=== PATIENT | female | born 1955 | race African-American/Black ===

== ENCOUNTER 2020-05-08 07:12 | Observation (INO) | payer MEDICARE ==
[2020-05-04 13:18] LABS: BASOPHILS # (AUTO) 0.1 (0.0-0.1); BASOPHILS % 0.6 % (0.0-1.0); EOSINOPHILS # (AUTO) 0.3 (0.0-0.4); EOSINOPHILS % 2.9 % (0.0-6.0); HEMATOCRIT 39.4 % (34.2-44.1); LYMPHOCYTES # (AUTO) 3.2 (1.0-3.2); LYMPHOCYTES % 32.1 % (18.0-39.1); MEAN CORPUSCULAR HEMOGLOBIN 22.1 pg (28-32); MEAN CORPUSCULAR HGB CONC 30.5 g/dL (31-35); MEAN CORPUSCULAR VOLUME 72.4 fL (81-99); MONOCYTES # (AUTO) 0.8 (0.2-0.8); MONOCYTES % 7.5 % (4.4-11.3); NEUTROPHILS # (AUTO) 5.7 (2.1-6.9); NEUTROPHILS % 56.5 % (38.7-80.0); PLATELET COUNT 214 x10e3/uL (140-360); RED BLOOD COUNT 5.44 x10e6/uL (3.6-5.1); RED CELL DISTRIBUTION WIDTH 16.9 % (11.7-14.4)
--- NOTE | 2020-05-04 14:02 | Diagnostic Imaging Report ---
Exam: CHEST 2 VIEWS Date: 05/04/2020 1:58 PM INDICATION: ^PRE OP Comparison: None FINDINGS: Lines/Tubes:None Lungs:The lungs are well inflated. No focal consolidation or pulmonary edema. Pleura:No pleural effusion. No pneumothorax. Heart/Mediastinum:The cardiomediastinal silhouette is normal in size and contour. Bones/Soft Tissues: No acute osseous abnormality. Mild multilevel degenerative changes of the spine are noted. Upper abdomen: Unremarkable. IMPRESSION: Negative for acute intrathoracic process. Signed by: Kyrie Andrade MD on 05/04/2020 1:58 PM
[~2020-05-08] VITALS: Ht 167.6 cm; Wt 116.1 kg
[~2020-05-08 07:12] MED LIST: AMLODIPINE BESYL5 MG PO
[2020-05-08] MEDS ORDERED: ROPIVACAINE 246.25 MG, EPINEPHRINE HCL 1:1000 1ML 0.5 MG, CLONIDINE HCL 0.08 MG, KETORO... INJ ONE ×5 (08:00)
[2020-05-08] MEDS ORDERED: CEFAZOLIN SOD 1 GM/NS 50ML 100 ML IV ONE (08:28)
[2020-05-08] MEDS ORDERED: GABAPENTIN 300 MG CAP ONE (08:28)
[2020-05-08] MEDS ORDERED: CELECOXIB 200 MG CAP ONE (08:28)
[2020-05-08] MEDS ORDERED: DEXAMETHASONE SOD PHOS 10 MG/1 ML VIAL ONE (08:28)
[2020-05-08] MEDS ORDERED: TRANEXAMIC ACID 1,000 MG/10 ML ML ONE (10:02)
[2020-05-08] MEDS ORDERED: VANCOMYCIN HCL 500 MG ONE ×2 (10:02→10:17)
[2020-05-08] MEDS ORDERED: SODIUM CHLORIDE 0.9% 500ML 500 ML ONE (10:02)
[2020-05-08] MEDS ORDERED: MIDAZOLAM HCL 2 MG/2 ML VIAL ONE (11:49)
[2020-05-08] MEDS ORDERED: FENTANYL CITRATE/PF 100MCG/2 ML INJ ONE (11:49)
[2020-05-08] MEDS ORDERED: SEVOFLURANE INHAL SOLN 250 ML PEN BTL ONE (12:33)
[2020-05-08] MEDS ORDERED: LIDOCAINE HCL 2% LOCAL INJ 5 ML SDV VIAL INJ ONE (12:33)
[2020-05-08] MEDS ORDERED: DEXAMETHASONE SOD PHOS INJ 4 MG/ML VIAL ONE (12:33)
[2020-05-08] MEDS ORDERED: ONDANSETRON HCL INJ 2MG/ML 2ML 2 MG/ML VIAL ONE (12:33)
[2020-05-08] MEDS ORDERED: PROPOFOL IV EMULSION 10 MG/ML 20 ML VIAL ONE (12:33)
[2020-05-08] MEDS ORDERED: HYDROCODONE/APAP 5MG-325MG TAB PO PRN (13:00)
[2020-05-08] MEDS ORDERED: DOCUSATE SODIUM 100 MG CAP PO PRN (13:00)
[2020-05-08] MEDS ORDERED: ACETAMINOPHEN 650 MG SUPP PR PRN (13:00)
[2020-05-08] MEDS ORDERED: DIPHENHYDRAMINE HCL INJ 50 MG/ML VIAL IV PRN (13:00)
[2020-05-08] MEDS ORDERED: KETOROLAC TROMETHAMINE 30 MG/ML VIAL IV PRN (13:00)
[2020-05-08] MEDS ORDERED: ONDANSETRON HCL INJ 2MG/ML 2ML 2 MG/ML VIAL IV PRN (13:00)
--- NOTE | 2020-05-08 13:30 | Operative Report ---
DATE OF PROCEDURE: 05/08/2020 SURGEON: Fausto Crespo MD EDUCATION TRAINER: Harley Irwin, certified PA. PREOPERATIVE DIAGNOSIS: Osteoarthritis, right knee. POSTOPERATIVE DIAGNOSIS: Osteoarthritis, right knee. PROCEDURE: Right total knee arthroplasty, * added complexity secondary to BMI over 41. INDICATIONS: The patient is a 65-year-old lady, who has end-stage medial compartment arthritis of her right knee. She has failed conservative management and would like to proceed with a right total knee replacement. The risks and benefits have been discussed. The added challenges and potential risks for perioperative complications due to her body mass index have been explained. She states she understands and wishes to proceed. PROCEDURE IN DETAIL: The patient was brought to the operating room and placed under general anesthetic. She received prophylactic antibiotics, a regional block, and tranexamic acid in the holding area. Her right lower extremity was prepped and draped in a sterile manner. A preoperative time-out was performed. Added time and personnel were necessary due to the patient's body mass index of over 41. The extremity was exsanguinated and a proximal tourniquet was inflated to 350 mmHg. An anterior incision with a medial parapatellar arthrotomy was performed. Care was taken to avoid extensive deep dissection in the medial and lateral aspect of the knee to avoid space. There was abundant subcutaneous adipose tissue. Medial parapatellar arthrotomy was performed. Clear synovial fluid was removed from the joint. Soft tissue releases were performed to bring the knee up into flexion with the patella everted. Meniscal remnants, marginal osteophytes, and the cruciate ligaments were removed. A Finn/Biomet Persona medial congruent knee system was used throughout the case. Initial attention was directed towards the proximal tibia. An extramedullary cutting guide was used to resect the tibia. The tibial base plate was a size E. The central fin punch was drilled and impacted, and attention was directed towards the distal femur. An intramedullary cutting guide was used to resect the distal femur in 5 degrees of valgus and rotation referencing off a combination of landmarks including Whitesides line, the posterior condyles, and the epicondylar axis. The femoral component was a size 8. The anterior and posterior cuts were made. Trial reductions were performed. A 10 mm medial congruent tibial insert provided appropriate soft tissue balancing in full extension and 90 degrees of flexion. The patella was resurfaced with a 32 mm patellar button. Patellar tracking was noted to be concentric. The trial implants were then all removed. The knee was thoroughly irrigated with a shower tip pulsatile lavage. A 100 mL premixed pericapsular SOBEIDA injection was placed into the surrounding soft tissue. The components were cemented into place using a single mix of high viscosity Biomet cement preloaded with antibiotics. Care was taken to remove extravasated cement. The wound was further irrigated while the cement cured. The arthrotomy was then closed with interrupted #1 Ethibond. The knee was put through flexion and extension to ensure a secure closure. The skin was closed with subcuticular Vicryl and anamika. A sterile Aquacel bandage and an Saul wrap were applied. The patient was extubated and transported to the recovery room in stable condition. Blood loss was minimal. All needle and sponge counts were correct. Fausto Crespo MD DR/ROSS /[id number]
[2020-05-08] MEDS ORDERED: MEPERIDINE HCL INJ 25 MG/ML VIAL ONE (13:35)
--- NOTE | 2020-05-08 13:38 | Diagnostic Imaging Report ---
X-ray right knee History: Postop Comparison: None Findings: Status post tricompartmental right knee arthroplasty with expected postoperative changes of soft tissue swelling, surgical anamika, soft tissue air. Orthopedic hardware in near anatomic alignment. Impression: As above. Signed by: Bj Pelaez MD on 05/08/2020 1:34 PM
[2020-05-08 14:22] VITALS: BP 111/71
[2020-05-08 14:30] VITALS: BP 111/71
[2020-05-08 14:55] VITALS: BP 111/71
--- NOTE | 2020-05-08 15:30 | NUR ---
DR ARAIZA OFFICE PREARRANGED FOLLOWING DISCHARGE PLAN OF: HOME [id number] [id number] [facility] WITH [facility] CONFIRMED WITH PRITESH [phone] JANETH 3 IN ONE COMMODE AND CPM PROVIDED BY [facility] [phone] I PROVIDED ROLLING WALKER WITH WHEELS FOR DISCHARGE OBTAINED SIGNATURES AND WILL FILE IN PACU
[2020-05-08] MEDS: HYDROCODONE/APAP 7.5MG-325MG 1 EA TAB PO PRN ×2 (15:49→21:07)
[2020-05-08] MEDS: SODIUM CHLORIDE 0.9% 1000ML 1,000 ML IV SCH ×2 (15:49→23:00)
[2020-05-08] MEDS: CELECOXIB 200 MG CAP PO SCH (17:07)
[2020-05-08] MEDS: CEFAZOLIN SOD 1 GM/NS 50ML 50 ML IV SCH (17:08)
[2020-05-08 17:10] VITALS: BP 114/73
[2020-05-08] MEDS ORDERED: ROPIVACAINE 0.5% 5 MG/ML 30 ML SDV ONE (17:28)
[2020-05-08 19:00] VITALS: BP 118/75
--- NOTE | 2020-05-08 19:40 | NUR ---
bedside shift report received from day rn. pt on cpm machine and tolerating it well. pt denies pain. respirations even and unlabored. piv patent 20 g rt hand. site healthy. rt knee dressing dry and intact. pt up to bathroom with walker- voiding without difficulty. call light within reach. Bed locked in low position.
[2020-05-08 20:00] VITALS: BP 118/75
[2020-05-08] MEDS ORDERED: ZOLPIDEM TARTRATE 5 MG TAB PO PRN (21:00)
[2020-05-08] MEDS: ASPIRIN 325 MG TAB PO SCH (21:08)
[2020-05-09 00:23] VITALS: BP 91/52
[2020-05-09] MEDS: CEFAZOLIN SOD 1 GM/NS 50ML 50 ML IV SCH ×2 (02:18→09:15)
--- NOTE | 2020-05-09 05:00 | NUR ---
Dr ibarra here instructed to hold b/p med this am due to b/p lower during night. Order entered. Will endorce to day rn.
[2020-05-09 06:09] VITALS: BP 100/72
--- NOTE | 2020-05-09 06:43 | Consultation ---
DATE OF CONSULTATION: 05/09/2020 REASON FOR CONSULTATION: Postop medical management. HISTORY OF PRESENT ILLNESS: The patient is a 65-year-old lady, status post right knee arthroplasty, is doing well postoperatively with minimal pain in the right knee. REVIEW OF SYSTEMS: She denies any fever, chills, nausea, vomiting, headache, shortness of breath, or dizziness. PAST MEDICAL HISTORY: Significant for osteoarthritis, hypertension. MEDICATIONS: See MAR. ALLERGIES: CODEINE. SOCIAL HISTORY: She is a nonsmoker. Retired, , lives at home. Nondrinker. FAMILY HISTORY: Noncontributory at this time. PHYSICAL EXAMINATION: VITAL SIGNS: She is 97.9, pulse 94, blood pressure 91/52, sats 96% on room air. GENERAL: She is in no apparent distress, lying in bed. NECK: Supple. No lymphadenopathy. CARDIOVASCULAR: Regular rate and rhythm. LUNGS: Clear to auscultation bilaterally. ABDOMEN: Good bowel sounds. Soft, nontender. EXTREMITIES: No clubbing or cyanosis. The right knee has bandage without seepage. NEUROLOGIC: Nonfocal. ASSESSMENT AND PLAN: 1. Right knee pain. Continue with postoperative care and physical therapy. 2. Anemia. We will check CBC. 3. Hypertension. Continue to monitor since her blood pressure is a little bit on the lower side, and she is asymptomatic and resume her medicine at discharge. Please see hospital chart for details. MD TAMARA Jordan/ROSS /[id number]
[2020-05-09 06:51] LABS: HEMATOCRIT 32.3 % (34.2-44.1); HEMOGLOBIN 9.8 g/dL (12.0-16.0)
[2020-05-09 07:25] VITALS: BP 100/72
[2020-05-09 08:06] VITALS: BP 116/77
[2020-05-09] MEDS: ASPIRIN 325 MG TAB PO SCH (08:31)
[2020-05-09] MEDS: CELECOXIB 200 MG CAP PO SCH (08:32)
[2020-05-09 08:34] VITALS: BP 116/77
[2020-05-09] MEDS ORDERED: ASPIRIN EC81 MG PO (08:46)
[2020-05-09] MEDS ORDERED: AMLODIPINE BESYLATE 5 MG TAB PO SCH (09:00)
[2020-05-09] MEDS: SODIUM CHLORIDE 0.9% 1000ML 1,000 ML IV SCH (09:00)
[2020-05-09 11:51] VITALS: BP 128/77
[2020-05-09] MEDS ORDERED: ONDANSETRON HCL 4 MG ORAL DISINTEGRATING TAB PO PRN (13:00)
[2020-05-09] MEDS ORDERED: ACETAMINOPHEN 1000 MG/100 ML IV PRN (13:00)
== END 2020-05-09 14:02 | disposition home or self-care (01) ==
LOC: OR 07:12 → PACU V 12:57 → MED/SURG 14:10
PROVIDERS: ADMIT Specialist; ATTEND Specialist
DX: M17.11 Unilateral primary osteoarthritis, right knee (principal); E66.01 Morbid (severe) obesity due to excess calories; Z68.41 Body mass index [BMI] 40.0-44.9, adult; I10 Essential (primary) hypertension; B18.2 Chronic viral hepatitis C; Z20.828 Contact with and (suspected) exposure to other viral communicable diseases; Z01.818 Encounter for other preprocedural examination
CPT/HCPCS: 27447; 36415 ×2; 71046; 73560; 85014; 85018; 85025; 86850; 86900; 86920; 97116 ×2; 97139; 97161; 97530 ×2; C1713; C1776 ×3; G0378 ×2; J0171; J0690 ×2; J1100 ×2; J1885; J2001; J2175; J2250; J2405; J2704; J2795; J3010; J3370; J7030 ×2; J7040; U0002